=== PATIENT | male | born 1940 | race Two or more races ===

== ENCOUNTER 2021-04-09 07:55 | Inpatient (IN) | payer OTHER ==
[~2021-04-09] VITALS: Ht 160 cm; Wt 78.4 kg
[2021-04-09] VITALS (8 sets, daily range): BP systolic 92–147; BP diastolic 69–86
[~2021-04-09 07:55] MED LIST: BENA20TA14 PO; CHOL100029 PO; CYAN500L3 PO; METO25TA36 PO
[2021-04-09] MEDS ORDERED: ceFAZolin 1GM/50ML 100 ML IV ONE (08:04)
[2021-04-09] MEDS ORDERED: ACETAMINOPHEN IV 100 ML IV ONE (08:04)
[2021-04-09] MEDS ORDERED: ACETAMINOPHEN IV 1000 MG/100ML (10MG/ML) IV ONE (08:15)
[2021-04-09] MEDS ORDERED: CELECOXIB 100 MG CAP PO ONE (08:15)
[2021-04-09] MEDS ORDERED: PREGABALIN CAPSULE 75 MG CAP PO ONE (08:15)
[2021-04-09] MEDS ORDERED: BUPIVACAINE 0.25% INJ 50ML VIAL ONE (09:02)
[2021-04-09] MEDS ORDERED: MIDAZOLAM HCL 2MG/2ML 2ml VIAL (1mg/ml) ONE (09:03)
[2021-04-09] MEDS ORDERED: MORPHINE SULF(PF) 0.5MG/ML 10ML VIAL ONE ×2 (09:03)
[2021-04-09] MEDS ORDERED: fentaNYL CITRATE 100 MCG/2 ML VL ONE (09:03)
[2021-04-09] MEDS ORDERED: KETOROLAC TROMETH 30 MG/ML 1ML VIAL ONE (09:03)
[2021-04-09] MEDS ORDERED: VANCOMYCIN HCL 1000 MG VL ONE (09:04)
[2021-04-09] MEDS ORDERED: TETRACAINE 1% INJ 2 ML VIAL IJ ONE (09:05)
[2021-04-09] MEDS ORDERED: PHENYLEPHRINE HCL 10 MG/ML VL IV ONE (09:15)
[2021-04-09] MEDS ORDERED: PROPOFOL 10 MG/ML 20 ML IV ONE (09:46)
[2021-04-09] MEDS ORDERED: DexAMETHasone SOD PHOS 10MG/1ML VIAL INJ ONE (09:47)
[2021-04-09] MEDS ORDERED: TRANEXAMIC ACID 20 ML ONE (09:55)
[2021-04-09] MEDS ORDERED: LABETALOL HCL 5 MG/ML 4ML SYRINGE IV PRN (10:00)
[2021-04-09] MEDS ORDERED: HYDROmorphone HCL 2 MG/ML VL IV PRN (10:00)
[2021-04-09] MEDS ORDERED: NALBUPHINE HCL 10 MG/1ml INJECTION SUBCUT ONE (10:00)
[2021-04-09] MEDS ORDERED: MIDAZOLAM HCL 2MG/2ML 2ml VIAL (1mg/ml) IV PRN (10:00)
[2021-04-09] MEDS ORDERED: hydrALAZINE HCL 20 MG/ML VL IV PRN (10:00)
[2021-04-09] MEDS ORDERED: DexAMETHasone SOD PHOS 10MG/1ML VIAL INJ IV PRN (10:00)
[2021-04-09] MEDS ORDERED: ONDANSETRON HCL 4 MG/2 ML VIAL IV PRN ×2 (10:00→10:45)
[2021-04-09] MEDS ORDERED: NALOXONE HCL 0.4 MG/ML VIAL IV PRN (10:00)
[2021-04-09] MEDS ORDERED: ePHEDrine SULFATE 50 MG/ML AMP IV PRN (10:00)
[2021-04-09] MEDS ORDERED: diphenhdrAMINE HCL 50 MG/1 ML VL IV PRN (10:00)
[2021-04-09] MEDS: LACTATED RINGER'S 1,000 ML IV SCH ×2 (10:45→21:55)
[2021-04-09] MEDS ORDERED: NITROGLYCERIN 0.4 MG SL TAB SL PRN (10:45)
[2021-04-09] MEDS ORDERED: ACETAMINOPHEN 325 MG TAB PO PRN (10:45)
[2021-04-09] MEDS ORDERED: MORPHINE SULF INJ 2 MG/ML SYRINGE 1ML IV PRN (10:45)
[2021-04-09] MEDS: ceFAZolin 1GM/50ML 50 ML IV SCH ×3 (11:00→21:57)
[2021-04-09] MEDS: KETOROLAC TROMETH 30 MG/ML 1ML VIAL IV SCH ×2 (12:00→18:00)
[2021-04-09] MEDS: SODIUM CHLOR 0.9% PF (SALINE LOCK) 10ML VIAL/SYR IV SCH ×2 (14:20→21:55)
[2021-04-09] MEDS: METOPROLOL TARTRATE 25 MG TAB PO SCH (21:56)
[2021-04-09] MEDS: DOCUSATE SOD 100 MG CAP PO SCH (21:56)
[2021-04-10] VITALS (13 sets, daily range): BP systolic 100–152; BP diastolic 59–84
[2021-04-10] MEDS: KETOROLAC TROMETH 30 MG/ML 1ML VIAL IV SCH (01:13)
[2021-04-10] MEDS: SODIUM CHLOR 0.9% PF (SALINE LOCK) 10ML VIAL/SYR IV SCH ×3 (06:16→21:49)
[2021-04-10 06:40] LABS: Hematocrit 40.8 % (41.0-53.0)
[2021-04-10] MEDS: LACTATED RINGER'S 1,000 ML IV SCH ×2 (06:58→18:55)
[2021-04-10 07:09] LABS: Albumin 2.7 g/dL (3.4-5.0); Calcium 8.3 mg/dL (8.5-10.1); Potassium 4.5 mmol/L (3.5-5.1)
[2021-04-10 07:13] LABS: BUN/Creatinine Ratio 18.6; Bilirubin, Total 0.6 mg/dL (0.2-1.0); Total Protein 6.3 g/dL (6.4-8.2)
[2021-04-10] MEDS: DOCUSATE SOD 100 MG CAP PO SCH ×2 (10:14→21:49)
[2021-04-10] MEDS: METOPROLOL TARTRATE 25 MG TAB PO SCH ×2 (10:15→21:50)
[2021-04-10] MEDS: PANTOPRAZOLE 40 MG TAB PO SCH (10:15)
[2021-04-10] MEDS: ENOXAPARIN SOD 40 MG/0.4 ML SYRINGE SC SCH (10:15)
[2021-04-10] MEDS: BENAZEPRIL HCL 10 MG TAB PO SCH (10:16)
[2021-04-10] MEDS: OXYCODONE W/ ACETAMINOPHEN 5/325MG TABLET PO PRN (16:34)
[2021-04-11] MEDS: OXYCODONE W/ ACETAMINOPHEN 5/325MG TABLET PO PRN (03:16)
[2021-04-11] MEDS: LACTATED RINGER'S 1,000 ML IV SCH ×2 (04:01→12:45)
[2021-04-11 05:00] VITALS: BP 130/72
[2021-04-11] MEDS: SODIUM CHLOR 0.9% PF (SALINE LOCK) 10ML VIAL/SYR IV SCH ×2 (06:00→12:50)
[2021-04-11 07:57] LABS: Hematocrit 38.8 % (41.0-53.0); Hemoglobin 13.3 g/dL (13.5-17.5)
[2021-04-11] MEDS ORDERED: traMADol HCL 50 MG TAB PO PRN (08:15)
[2021-04-11] MEDS ORDERED: OXYCODONE W/ ACETAMINOPHEN 5/325MG TABLET PO PRN (08:15)
[2021-04-11] MEDS: HYDROmorphone HCL 2 MG/ML VL IV PRN ×3 (08:59→19:54)
[2021-04-11 09:00] VITALS: BP 134/79
[2021-04-11] MEDS: BENAZEPRIL HCL 10 MG TAB PO SCH (09:01)
[2021-04-11] MEDS: ENOXAPARIN SOD 40 MG/0.4 ML SYRINGE SC SCH (09:01)
[2021-04-11] MEDS: PANTOPRAZOLE 40 MG TAB PO SCH (09:01)
[2021-04-11] MEDS: METOPROLOL TARTRATE 25 MG TAB PO SCH (09:01)
[2021-04-11] MEDS: DOCUSATE SOD 100 MG CAP PO SCH (09:02)
[2021-04-11 12:53] VITALS: BP 153/81
[2021-04-11 16:47] VITALS: BP 127/71
[2021-04-11 18:33] VITALS: BP 127/71
== END 2021-04-11 19:30 | DRG 470 ==
LOC: SUR 07:55 → TELE 10:32 → TELE-WESTW 18:05
PROVIDERS: ADMIT Orthopaedic Surgery; ATTEND Orthopaedic Surgery
PROC: 8E0YXBZ Computer Assisted Procedure of Lower Extremity (ICD-10-PCS; 2021-04-09)
PROC: 0SRC0J9 Replacement of Right Knee Joint with Synthetic Substitute, Cemented, Open Approach (ICD-10-PCS; principal; 2021-04-09 09:25)
DX: M17.11 Unilateral primary osteoarthritis, right knee (principal); Z20.822 Contact with and (suspected) exposure to COVID-19; M21.061 Valgus deformity, not elsewhere classified, right knee; M24.561 Contracture, right knee; I10 Essential (primary) hypertension; Z79.899 Other long term (current) drug therapy
CPT/HCPCS: 36415; 73562; 80053; 85014; 85018; 86850; 86900; 86901; 87426; 97110; 97116; 97163; 97530; G0378; J0131; J0690; J1100; J1885; J2250; J2704; J3490